=== PATIENT | male | born 1990 | race Caucasian/White ===

== ENCOUNTER 2022-10-31 20:38 | Emergency (ER) | payer OTHER ==
[~2022-10-31] VITALS: Ht 180.3 cm; Wt 72.7 kg
[2022-10-31] MEDS ORDERED: QUET50TA24 PO (20:46)
[2022-10-31 22:01] VITALS: BP 129/85
[2022-10-31] MEDS ORDERED: IBUP-1554 PO (22:33)
== END 2022-10-31 22:54 | disposition home or self-care (01) ==
LOC: EMS 20:40
DX: N50.812 Left testicular pain (principal); F17.210 Nicotine dependence, cigarettes, uncomplicated
CPT/HCPCS: 99282; Z7502